=== PATIENT | female | born 1945 | race Caucasian/White ===

== ENCOUNTER 2017-11-01 19:14 | Emergency (ER) | payer MEDICARE, OTHER ==
[~2017-11-01 19:14] MED LIST: ALEN70TA39 PO; BACLPOW30 PO; CARV3.12 PO; CIPR500T2 PO; HYDR-2768 PO; POTA-267 PO; TEMA15CA PO; TRAM50 PO
[2017-11-01 19:27] VITALS: BP 144/63; PULSE 77; RESP 18; TEMP 98.5; O2SAT 97
[2017-11-01] MEDS ORDERED: POTA10SO12 PO (19:37)
[2017-11-01] MEDS ORDERED: HYDR25TA5 PO (19:37)
[2017-11-01] MEDS ORDERED: FOSA70TA3 (19:37)
[2017-11-01] MEDS ORDERED: GUAI600T11 PO (19:37)
[2017-11-01] MEDS ORDERED: CARV3.12 PO (19:37)
[2017-11-01] MEDS ORDERED: SERT-132 PO (19:37)
--- NOTE | 2017-11-01 19:41 | PD ---
HPI . Fall Chief Complaint: Fall Time Seen by Provider: 19:28 Travel History International Travel<30 days: No Contact w/Intl Traveler<30days: No Traveled to known affect area: No History of Present Illness HPI This is a patient with cerebral palsy who slid out of her wheelchair and landed on her right cheek. She comes in to us by [facility] with an injury to her right cheek, her right ear and her right lower thigh. She is unsure what she could have cut her ear on and is unsure as to how she injured her leg. She states that her pain is not very bad at all. The incident occurred just prior to presentation. There was no blow to the head or loss of consciousness. She denies neck pain. PFSH Past Medical History Arthritis: No Asthma: No Autoimmune Disease: No Blood Disorders: No Anxiety: No Depression: Yes (PT STATES THIS IS THE FIRST TIME SHE HAS BEEN DEPRESSED.) Cardiovascular Problems: No Cerebral Palsy: Yes High Cholesterol: No Chemotherapy: No Chest Pain: No Congestive Heart Failure: No COPD: No Cerebrovascular Accident: No Diabetes: No Diminished Hearing: No Endocrine: No GERD: No Glaucoma: No Genitourinary: No Headaches: No Hepatitis: No Hiatal Hernia: No Hypertension: Yes Immune Disorder: No Kidney Stones: No Neurologic: No Psychiatric: No Reproductive: No Respiratory: No Migraines: No Myocardial Infarction: No Radiation Therapy: No Renal Failure: No Seizures: No Sickle Cell Disease: No Sleep Apnea: No Thyroid Disease: No Ulcer: No PNEUMOCCOCAL Vaccine (Year): 2 Past Surgical History Abdominal Surgery: No Appendectomy: Yes Cardiac Surgery: No Cholecystectomy: No Ear Surgery: No Endocrine Surgery: No Eye Surgery: No Genitourinary Surgery: No Gynecologic Surgery: Yes (HYSTERECTOMY) Oral Surgery: No Thoracic Surgery: No Social History Alcohol Use: No Tobacco Use: No Substance Use: No Allergies-Medications (Allergen,Severity, Reaction): Coded Allergies: No Known Allergies (Verified , 11/10/11) Reported Meds & Prescriptions Reported Meds & Active Scripts Active Reported Potassium Chloride Liq (Potassium Chloride) 20 Meq/15 Ml Soln 20 Meq PO BID Mucus Relief ER (Guaifenesin) 600 Mg Tab 1,200 Mg PO BID PRN Carvedilol 3.125 Mg Tab 3.125 Mg PO BID Sertraline (Sertraline HCl) 50 Mg Tab 50 Mg PO DAILY Hydrochlorothiazide 25 Mg Tab 25 Mg PO BID Fosamax Plus D 70 mg-2,800 Iu (Alendronate Sodium/Vitamin D3) 70 Mg-2,800 Unit Tablet Review of Systems Except as stated in HPI: all other systems reviewed are Neg HENT: Positive: Other (right cheek pain), No: Headaches, Lightheadedness Musculoskeletal: Positive: Myalgias Skin: Positive Other (laceration) Physical Exam Narrative GENERAL: Awake and alert and in no acute distress. SKIN: Warm and dry. She has a laceration of the right ear. It is deep but well approximated. HEAD:. Normocephalic. Contusion to the right cheek. No periorbital tenderness. EYES: Pupils are equal. Extraocular movements are intact. NECK: Normal range of motion. Nontender. CARDIOVASCULAR: Regular rate and rhythm. RESPIRATORY: Nonlabored respirations. MUSCULOSKELETAL: Atraumatic. Tenderness to palpation just proximal to the right knee. No gross deformity. No bruising or swelling. Distally neurovascularly intact. NEUROLOGICAL: Nonfocal. PSYCHIATRIC: Appropriate mood and affect. Data Data Last Documented VS Vital Signs Date Time Temp Pulse Resp B/P (MAP) Pulse Ox O2 Delivery O2 Flow Rate FiO2 11/01/17 19:27 98.5 77 18 144/63 (90) 97 Orders Orders Tetanus/Diphtheria Tox Adult (Tetanus/Di (11/01/17 19:45) Ct Facial Bones W/O Iv Cont (11/01/17 19:32) Femur (Ap & Lat/2vws) (11/01/17 19:32) [employer] Request For Service (11/01/17 20:19) Acetamin-Hydrocod 325-5 Mg (Ventura 5-325 (11/01/17 20:30) Ibuprofen (Motrin) (11/01/17 20:45) MDM Medical Decision Making Medical Screen Exam Complete: Yes Emergency Medical Condition: Yes Differential Diagnosis Differential diagnosis of facial trauma includes but is not limited to soft tissue contusion, abrasions, laceration, nasal fracture, orbital fracture, zygomatic fracture Differential diagnosis of extremity trauma includes but is not limited to fracture, sprain or strain, dislocation, contusion Narrative Course This patient presents for evaluation of injuries sustained when she slid out of her wheelchair. She is wheelchair-bound because of cerebral palsy. Her main complaint was right lower thigh pain. She also had an injury to her right cheek and right ear. The x-ray of her right femur shows a subtle, nondisplaced fracture of the distal femur. She is a wheelchair-bound patient. Therefore, I am treating her fracture with a cotton roll, Wai wrap and knee immobilizer. She is complaining of very little pain. I have ordered Ventura for her pain. Last Impressions Maxillofacial CT 11/01/171931 Signed Impressions: Service Date/Time: Wednesday, November 01, 2017 20:21 - CONCLUSION: 1. Superficial edema in the right anterior face over the right axilla. 2. Asymmetry to the TMJs with the left TMJ appearing widened. This can be correlated if there are any symptoms related to this region. Tomasz Saldana MD Femur X-Ray 11/01/171931 Signed Impressions: Service Date/Time: Wednesday, November 01, 2017 19:45 - CONCLUSION: Distal right femoral fracture. Tomasz Saldana MD This patient lives in a facility. They should be able to take care of her femur fracture there. She will be discharged back to them with a prescription for Ventura for pain and a referral to orthopedics for routine follow-up. Procedures Procedure Narrative LACERATION LOCATION: Right ear LENGTH: 1 cm REPAIR: The area of the laceration was prepped with sterile saline. The wound was copiously irrigated and explored without evidence of foreign body, tendon injury or neurovascular injury. The wound was closed using Dermabond. Patient tolerated the procedure well. Splint was applied by the tech under my direct supervision. Good movement and capillary refill distal to the injury following splinting. Patient reports that the splint feels comfortable. Diagnosis Primary Impression: Closed fracture of right distal femur Qualified Codes: S72.401A - Unspecified fracture of lower end of right femur, initial encounter for closed fracture Additional Impressions: Laceration of right ear Qualified Codes: S01.311A - Laceration without foreign body of right ear, initial encounter Facial contusion Qualified Codes: S00.83XA - Contusion of other part of head, initial encounter Referrals: Baljit Padilla MD Patient Instructions: Facial Contusion (ED), General Instructions, Muscle Strain (DC), Skin Adhesive Care (DC) Med/Other Pt SpecificInfo: Prescription(s) given Scripts Hydrocodone-Acetaminophen (Ventura) 5 Mg-325 Mg Tab 1 TAB PO Q4H Y for PAIN, #15 TAB 0 Refills Prov: Nat Santillan MD 11/01/17 Disposition: 01 DISCHARGE HOME Condition: Stable Nat Santillan MD Nov 01, 2017 19:41
[2017-11-01] MEDS ORDERED: TETANUS/DIPHTHERIA TOXOID ADULT 0.5 ML VIAL IM ONE (19:45)
--- NOTE | 2017-11-01 20:11 | RADRPT ---
EXAM DATE/TIME: 11/01/2017 19:45 [facility] COMPARISON: No previous studies available for comparison. INDICATIONS : Evaluate right femur for trauma, fell MEDICAL HISTORY : Arthritis. SURGICAL HISTORY : None. ENCOUNTER: Initial ACUITY: 1 day PAIN SCORE: 0/10 LOCATION: Right Femur FINDINGS: There is fracturing of the distal aspect of the femur at the metaphyseal region. The knee and hip dariusz nts are aligned. There is a mild knee effusion. The bones are osteopenic. CONCLUSION: Distal right femoral fracture. Tomasz Saldana MD on November 01, 2017 at 20:07 Board Certified Radiologist. This report was verified electronically.
[2017-11-01] MEDS ORDERED: ACETAMINOPHEN/HYDROcodone 325 MG/5 MG TAB PO ONE (20:30)
--- NOTE | 2017-11-01 20:40 | RADRPT ---
EXAM DATE/TIME: 11/01/2017 20:21 [facility] COMPARISON: No previous studies available for comparison. INDICATIONS : Fall from wheelchair onto right side of face. RADIATION DOSE: 38.04 CTDIvol (mGy) MEDICAL HISTORY : Hypertension. cerebral palsy SURGICAL HISTORY : Appendectomy. ENCOUNTER: Initial ACUITY: 1 day PAIN SCORE: 7/10 LOCATION: Right face TECHNIQUE: Volumetric scanning of the facial bones was performed. Using automated exposure control and adjustme nt of the mA and/or kV according to patient size, radiation dose was kept as low as reasonably achiev able to obtain optimal diagnostic quality images. DICOM format image data is available electronicall y for review and comparison. FINDINGS: ORBITS: The orbital and infraorbital osseous structures are intact. The retroconal structures have a normal configuration. No radiopaque foreign bodies are seen. NASAL BONE: The nasal bone and maxillary spine are intact ZYGOMATIC ARCHES: Symmetric without evidence of fracture. SINUSES: The maxillary, ethmoid and frontal sinuses are intact. No air-fluid levels seen. NASAL CAVITY: The nasal septum is intact and midline. The lacrimal ducts are intact. SOFT TISSUES: There is induration in the right anterior subcutaneous tissues over the right maxilla.. INTRACRANIAL: No intracranial air seen. CRIBIFORM PLATE: Grossly intact. OTHER: On the images, there is asymmetry to the TMJ regions with the left TMJ appearing widened. The left ma ndibular condyle appears further from the temporal eminence on the left than it does on the right. Th is can be correlated with any signs of subluxation at the left TMJ. CONCLUSION: 1. Superficial edema in the right anterior face over the right axilla. 2. Asymmetry to the TMJs with the left TMJ appearing widened. This can be correlated if there are any symptoms related to this region. Tomasz Saldana MD on November 01, 2017 at 20:34 Board Certified Radiologist. This report was verified electronically.
[2017-11-01] MEDS ORDERED: IBUPROFEN 800 MG TAB PO ONE (20:45)
[2017-11-01] MEDS ORDERED: NORC5TAB PO (21:02)
== END 2017-11-02 00:10 | disposition home or self-care (01) ==
LOC: NEPE 19:14 → NEDAMB 11-02 00:10
DX: S72.401A Unspecified fracture of lower end of right femur, initial encounter for closed fracture (principal); S01.311A Laceration without foreign body of right ear, initial encounter; S00.83XA Contusion of other part of head, initial encounter; G80.9 Cerebral palsy, unspecified; I10 Essential (primary) hypertension; W05.0XXA Fall from non-moving wheelchair, initial encounter; Z79.899 Other long term (current) drug therapy; Z23 Encounter for immunization
CPT/HCPCS: 12011; 70486; 73552; 90471; 90714; 99285; L1830

== ENCOUNTER 2018-03-31 06:12 | Emergency (ER) | payer MEDICARE, OTHER ==
[~2018-03-31] VITALS: Ht 165.1 cm; Wt 91.0 kg
[~2018-03-31 06:12] MED LIST changes: -ALEN70TA39 PO; -BACLPOW30 PO; -CIPR500T2 PO; +FOSA70TA3; +GUAI600T11 PO; -HYDR-2768 PO; +HYDR25TA5 PO; +NORC5TAB PO; -POTA-267 PO; +POTA10SO12 PO; +SERT-132 PO; -TEMA15CA PO; -TRAM50 PO
[2018-03-31 06:23] VITALS: PULSE 65; RESP 12; TEMP 97.7
[2018-03-31 06:29] VITALS: BP 124/58; PULSE 64; RESP 12; TEMP 97.7; O2SAT 96
[2018-03-31] MEDS ORDERED: SODIUM CHLORIDE 0.9% FLUSH 10 ML FLUSH IV FLUSH PRN (06:30)
[2018-03-31 07:04] LABS: AUTOMATED NEUTROPHIL # 6.4 TH/MM3 (1.8-7.7); BASOPHIL % 0.3 % (0.0-2.0); EOSINOPHIL # 0.5 TH/MM3 (0-0.4); EOSINOPHIL % 5.9 % (0.0-4.0); LYMPH % 14.1 % (9.0-44.0); LYMPHOCYTE # 1.2 TH/MM3 (1.0-4.8); MEAN CORPUSCULAR HEMOGLOBIN 31.8 PG (27.0-34.0); MEAN CORPUSCULAR HGB CONC 34.2 % (32.0-36.0); MEAN PLATELET VOLUME 9.2 FL (7.0-11.0); MONO % 6.9 % (0.0-8.0); MONOCYTE # 0.6 TH/MM3 (0-0.9); NEUT % 72.8 % (16.0-70.0); PLATELET COUNT 263 TH/MM3 (150-450); RED BLOOD COUNT 4.09 MIL/MM3 (4.00-5.30); RED CELL DISTRIBUTION WIDTH 13.5 % (11.6-17.2); WHITE BLOOD COUNT 8.8 TH/MM3 (4.0-11.0)
[2018-03-31] MEDS ORDERED: DOCU100S PO (07:10)
[2018-03-31] MEDS ORDERED: LACT10SO G-TUBE (07:10)
[2018-03-31] MEDS ORDERED: BACL20TA PO (07:10)
[2018-03-31] MEDS ORDERED: D-20TAB3 PO (07:10)
[2018-03-31] MEDS ORDERED: BACL10TA PO (07:10)
[2018-03-31] MEDS ORDERED: MELA5 PO (07:10)
--- NOTE | 2018-03-31 07:24 | PD ---
HPI Chief Complaint: [employer] Con[employer] Problem Time Seen by Provider: 06:22 Travel History International Travel<30 days: No Contact w/Intl Traveler<30days: No Traveled to known affect area: No History of Present Illness HPI Patient is a 72 year old female with a history of cerebral palsy presents emergency department for dislodgment of gastric feeding tube. According to EMS detention staff went to give the patient her morning feeding and on assessing her noticed the G-tube was dislodged. I was called to bring her to the hospital for replacement of the G-tube. Patient has apparently fairly severe cerebral palsy and is unable to provide any of her history. EMS on their assessment and also noticed the patient's abdomen was distended and fairly firm and especially in the lower quadrants. No reported history of nausea vomiting or fevers. No history of cancer apparently. Remainder the history is extremely limited by the patient's baseline mental status PFSH Past Medical History Arthritis: No Asthma: No Autoimmune Disease: No Blood Disorders: No Anxiety: No Depression: Yes Cardiovascular Problems: No Cerebral Palsy: Yes High Cholesterol: No Chemotherapy: No Chest Pain: No Congestive Heart Failure: No COPD: No Cerebrovascular Accident: No Diabetes: No Diminished Hearing: No Endocrine: No GERD: No Glaucoma: No Genitourinary: No Headaches: No Hepatitis: No Hiatal Hernia: No Hypertension: Yes Immune Disorder: No Kidney Stones: No Neurologic: No Psychiatric: No Reproductive: No Respiratory: No Migraines: No Myocardial Infarction: No Radiation Therapy: No Renal Failure: No Seizures: No Sickle Cell Disease: No Sleep Apnea: No Thyroid Disease: No Ulcer: No PNEUMOCCOCAL Vaccine (Year): 2 Past Surgical History Abdominal Surgery: No Appendectomy: Yes Cardiac Surgery: No Cholecystectomy: No Ear Surgery: No Endocrine Surgery: No Eye Surgery: No Genitourinary Surgery: No Gynecologic Surgery: Yes (HYSTERECTOMY) Oral Surgery: No Thoracic Surgery: No Social History Alcohol Use: No Tobacco Use: No Substance Use: No Allergies-Medications (Allergen,Severity, Reaction): Coded Allergies: No Known Allergies (Verified Adverse Reaction, Unknown, 03/31/18) Reported Meds & Prescriptions Reported Meds & Active Scripts Active Reported Melatonin 5 Mg Tab 3 Mg PO HS Lactulose Liq (Lactulose) 10 Gm/15 Ml Soln 15 Ml G-TUBE BID Docusate Sodium Liq (Docusate Sodium) 50 Mg/5 Ml Liq 100 Mg PO DAILY D-2000 Maximum Strength (Cholecalciferol) 2,000 Unit Tab 1,000 Units PO DAILY Baclofen 20 Mg Tab 20 Mg PO DAILY Baclofen 10 Mg Tab 10 Mg PO BID Potassium Chloride Liq (Potassium Chloride) 20 Meq/15 Ml Soln 20 Meq PO BID Carvedilol 3.125 Mg Tab 3.125 Mg PO BID Sertraline (Sertraline HCl) 50 Mg Tab 50 Mg PO DAILY Hydrochlorothiazide 25 Mg Tab 25 Mg PO BID Fosamax Plus D 70 mg-2,800 Iu (Alendronate Sodium/Vitamin D3) 70 Mg-2,800 Unit Tablet Review of Systems ROS Limitations: Altered Mental Status Physical Exam Narrative GENERAL: Well-developed well-nourished, no obvious distress per SKIN: Focused skin assessment warm/dry. HEAD: Atraumatic. Normocephalic. EYES: Pupils equal and round. No scleral icterus. No injection or drainage. ENT: No nasal bleeding or discharge. Mucous membranes pink and moist. NECK: Trachea midline. No JVD. CARDIOVASCULAR: Regular rate and rhythm. No murmur appreciated. RESPIRATORY: No accessory muscle use. Clear to auscultation. Breath sounds equal bilaterally. GASTROINTESTINAL: Abdomen is fairly distended, there is some firmness to palpation is particularly in the lower quadrants, there is voluntary guarding without any involuntary guarding. No peritoneal signs. No percussive tenderness no rebound tenderness. There is a left-sided gastrostomy ostomy that does show some gastric contents rate at its orifice. Appears to be well- healed. No surrounding erythema. MUSCULOSKELETAL: No obvious deformities. No clubbing. No cyanosis. No edema. NEUROLOGICAL: Awake and alert. No obvious cranial nerve deficits. Motor grossly within normal limits. Normal speech. PSYCHIATRIC: Appropriate mood and affect; insight and judgment normal. Data Data Last Documented VS Vital Signs Date Time Temp Pulse Resp B/P (MAP) Pulse Ox O2 Delivery O2 Flow Rate FiO2 03/31/18 06:29 97.7 64 12 124/58 (80) 96 Room Air Orders Orders Complete Blood Count With Diff (03/31/18 06:22) Comprehensive Metabolic Panel (03/31/18 06:22) Lipase (03/31/18 06:22) Lactic Acid (03/31/18 06:22) Urinalysis - C+S If Indicated (03/31/18 06:22) Iv Access Insert/Monitor (03/31/18 06:22) Ecg Monitoring (03/31/18 06:22) Oximetry (03/31/18 06:22) Sodium Chloride 0.9% Flush (Ns Flush) (03/31/18 06:30) Ct Abd/Pel W Iv Contrast(Rout) (03/31/18 ) Labs Laboratory Tests Test 03/31/18 06:40 White Blood Count 8.8 TH/MM3 Red Blood Count 4.09 MIL/MM3 Hemoglobin 13.0 GM/DL Hematocrit 38.0 % Mean Corpuscular Volume 93.0 FL Mean Corpuscular Hemoglobin 31.8 PG Mean Corpuscular Hemoglobin Concent 34.2 % Red Cell Distribution Width 13.5 % Platelet Count 263 TH/MM3 Mean Platelet Volume 9.2 FL Neutrophils (%) (Auto) 72.8 % Lymphocytes (%) (Auto) 14.1 % Monocytes (%) (Auto) 6.9 % Eosinophils (%) (Auto) 5.9 % Basophils (%) (Auto) 0.3 % Neutrophils # (Auto) 6.4 TH/MM3 Lymphocytes # (Auto) 1.2 TH/MM3 Monocytes # (Auto) 0.6 TH/MM3 Eosinophils # (Auto) 0.5 TH/MM3 Basophils # (Auto) 0.0 TH/MM3 CBC Comment DIFF FINAL Differential Comment MDM Medical Decision Making Medical Screen Exam Complete: Yes Emergency Medical Condition: Yes Differential Diagnosis Dislodged gastrotomy feeding tube, abdominal mass, acute abdomen seems unlikely. Narrative Course Patient room to the emergency department, given the history of fairly low index suspicion but given the abdominal findings on exam my concern is for a mass that I cannot palpate the edges of, CAT scan has been ordered. I placed initially a 10 [place] June to hold gentle open for the G-tube. Patient was discussed with Dr. Olson at 07 100 shift change to follow-up CAT scan. Disposition appropriately. An 18fr g tube was placed with minimal ease. Minimal bleeding afterwards. Aspiration of gastric contents performed. Tolerated well. Not flused as will be confirmed on CT. Ovidio Johnson MD March 31, 2018 07:24
[2018-03-31 08:00] VITALS: BP 165/74; PULSE 72; RESP 17; O2SAT 97
[2018-03-31 09:25] LABS: BACTERIA, URINE MOD /hpf; BILIRUBIN, URINE NEG (NEG); BLOOD, URINE NEG (NEG); GLUCOSE,URINE NEG (NEG); KETONE, URINE NEG (NEG); MUCUS URINE FEW /lpf (OCC); NITRITE,URINE POS (NEG); PH, URINE 6.5 (5.0-8.5); SQUAMOUS EPITHELIAL CELL URINE 1 /hpf (0-5); URINE COLOR YELLOW (YELLW/STRAW); URINE LEUKOCYTE ESTERASE LARGE (NEG)
[2018-03-31 09:58] LABS: ALBUMIN 3.2 GM/DL (3.4-5.0); AST (GOT) 23 U/L (15-37); BICARBONATE 27.2 MEQ/L (21.0-32.0); BLOOD UREA NITROGEN 23 MG/DL (7-18); CALCIUM 8.9 MG/DL (8.5-10.1); CHLORIDE 103 MEQ/L (98-107); CREATININE 0.62 MG/DL (0.50-1.00); GLOMERULAR FILTRATION RATE 95 ML/MIN (>89); GLUCOSE,RANDOM 116 MG/DL (74-106); SODIUM (NA) 139 MEQ/L (136-145)
[2018-03-31 10:00] LABS: ALT (GPT) 46 U/L (10-53)
[2018-03-31 10:02] LABS: ALKALINE PHOSPHATASE 110 U/L (45-117); TOTAL BILIRUBIN ADULT 0.3 MG/DL (0.2-1.0); TOTAL PROTEIN 7.3 GM/DL (6.4-8.2)
[2018-03-31] MEDS ORDERED: IOHEXOL 350 MG/ML 10 ML VIAL (for RAD DIAG) IVCONTRAST ONE (10:36)
--- NOTE | 2018-03-31 10:45 | RADRPT ---
EXAM DATE/TIME: 03/31/2018 10:26 [facility] COMPARISON: No previous studies available for comparison. INDICATIONS : Abdomen pain and lower quadrant firmness. G-tube dislodged with drainage. IV CONTRAST: 93 cc Omnipaque 350 (iohexol) IV ORAL CONTRAST: No oral contrast ingested. RADIATION DOSE: 16.60 CTDIvol (mGy) MEDICAL HISTORY : Hypertension. Cerebral palsy SURGICAL HISTORY : Appendectomy. Hysterectomy.G-tube ENCOUNTER: Initial ACUITY: 1 day PAIN SCALE: 3/10 LOCATION: anterior TECHNIQUE: Volumetric scanning of the abdomen and pelvis was performed. Using automated exposure control and ad justment of the mA and/or kV according to patient size, radiation dose was kept as low as reasonably achievable to obtain optimal diagnostic quality images. DICOM format image data is available electro nically for review and comparison. FINDINGS: LOWER LUNGS: The visualized lower lungs are clear. LIVER: Homogeneous density without lesion. There is no dilation of the biliary tree. No calcified gallston es. SPLEEN: Normal size without lesion. PANCREAS: Within normal limits. KIDNEYS: Normal in size and shape. There is no mass, stone or hydronephrosis. Benign-appearing cortical cyst medially in the upper pole left kidney measures 3.7 cm in diameter ADRENAL GLANDS: Within normal limits. VASCULAR: There is no aortic aneurysm. BOWEL/MESENTERY: The stomach, small bowel, and colon demonstrate no acute abnormality. There is no free intraperitone al air or fluid. Gastrostomy tube appropriately positioned within the gastric lumen. Large amount of stool in the rectal vault. ABDOMINAL WALL: Within normal limits. RETROPERITONEUM: There is no lymphadenopathy. BLADDER: No wall thickening or mass. REPRODUCTIVE: Within normal limits. INGUINAL: There is no lymphadenopathy or hernia. MUSCULOSKELETAL: Mild dextroscoliosis of the lumbar spine. Chronic compression fractures through the superior and plat es of L2-L4. Otherwise intact. CONCLUSION: 1. No acute intraperitoneal or pelvic process to explain current clinical symptoms. 2. Gastrostomy tube is appropriately positioned in the gastric lumen. 3. Mild dextroscoliosis of the lumbar spine with chronic appearing compression fractures through the superior endplates of L2-L4 Vineet Romero MD on March 31, 2018 at 10:36 Board Certified Radiologist. This report was verified electronically.
--- NOTE | 2018-03-31 11:03 | PD ---
Physical Exam Narrative GENERAL: SKIN: Warm and dry. HEAD: Atraumatic. Normocephalic. EYES: Pupils equal and round. No scleral icterus. No injection or drainage. ENT: No nasal bleeding or discharge. Mucous membranes pink and moist. NECK: Trachea midline. No JVD. CARDIOVASCULAR: Regular rate and rhythm. RESPIRATORY: No accessory muscle use. Clear to auscultation. Breath sounds equal bilaterally. GASTROINTESTINAL: Abdomen soft, non-tender, nondistended. G-tube in place MUSCULOSKELETAL: Extremities without clubbing, cyanosis, or edema. No obvious deformities. NEUROLOGICAL: Arousable and follows directions, moving all extremities spontaneously. BUT SOMNOLENT PSYCHIATRIC: Appropriate mood and affect; insight and judgment normal. Data Data Last Documented VS Vital Signs Date Time Temp Pulse Resp B/P (MAP) Pulse Ox O2 Delivery O2 Flow Rate FiO2 03/31/18 08:00 72 17 165/74 (104) 97 03/31/18 06:29 97.7 Room Air Orders Orders Complete Blood Count With Diff (03/31/18 06:22) Comprehensive Metabolic Panel (03/31/18 06:22) Lipase (03/31/18 06:22) Lactic Acid (03/31/18 06:22) Urinalysis - C+S If Indicated (03/31/18 06:22) Iv Access Insert/Monitor (03/31/18 06:22) Ecg Monitoring (03/31/18 06:22) Oximetry (03/31/18 06:22) Sodium Chloride 0.9% Flush (Ns Flush) (03/31/18 06:30) Ct Abd/Pel W Iv Contrast(Rout) (03/31/18 ) Cath For Specimen (03/31/18 08:43) Urine Culture (03/31/18 09:07) Iohexol 350 Inj (Omnipaque 350 Inj) (03/31/18 10:36) Ed Discharge Order (03/31/18 11:00) Labs Laboratory Tests Test 03/31/18 06:40 03/31/18 09:07 03/31/18 09:31 White Blood Count 8.8 TH/MM3 Red Blood Count 4.09 MIL/MM3 Hemoglobin 13.0 GM/DL Hematocrit 38.0 % Mean Corpuscular Volume 93.0 FL Mean Corpuscular Hemoglobin 31.8 PG Mean Corpuscular Hemoglobin Concent 34.2 % Red Cell Distribution Width 13.5 % Platelet Count 263 TH/MM3 Mean Platelet Volume 9.2 FL Neutrophils (%) (Auto) 72.8 % Lymphocytes (%) (Auto) 14.1 % Monocytes (%) (Auto) 6.9 % Eosinophils (%) (Auto) 5.9 % Basophils (%) (Auto) 0.3 % Neutrophils # (Auto) 6.4 TH/MM3 Lymphocytes # (Auto) 1.2 TH/MM3 Monocytes # (Auto) 0.6 TH/MM3 Eosinophils # (Auto) 0.5 TH/MM3 Basophils # (Auto) 0.0 TH/MM3 CBC Comment DIFF FINAL Differential Comment Urine Color YELLOW Urine Turbidity CLEAR Urine pH 6.5 Urine Specific [place] 1.011 Urine Protein NEG mg/dL Urine Glucose (UA) NEG mg/dL Urine Ketones NEG mg/dL Urine Occult Blood NEG Urine Nitrite POS Urine Bilirubin NEG Urine Urobilinogen LESS THAN 2.0 MG/DL Urine Leukocyte Esterase LARGE Urine RBC 1 /hpf Urine WBC 36 /hpf Urine Squamous Epithelial Cells 1 /hpf Urine Bacteria MOD /hpf Urine Mucus FEW /lpf Microscopic Urinalysis Comment CULTURE INDICATED Blood Urea Nitrogen 23 MG/DL Creatinine 0.62 MG/DL Random Glucose 116 MG/DL Total Protein 7.3 GM/DL Albumin 3.2 GM/DL Calcium Level 8.9 MG/DL Alkaline Phosphatase 110 U/L Aspartate Amino Transf (AST/SGOT) 23 U/L Alanine Aminotransferase (ALT/SGPT) 46 U/L Total Bilirubin 0.3 MG/DL Sodium Level 139 MEQ/L Potassium Level 3.6 MEQ/L Chloride Level 103 MEQ/L Carbon Dioxide Level 27.2 MEQ/L Anion Gap 9 MEQ/L Estimat Glomerular Filtration Rate 95 ML/MIN Lactic Acid Level 1.2 mmol/L Lipase 95 U/L [facility] Medical Record Reviewed: Yes Supervised Visit with APARNA: No Narrative Course CBC shows no leukocytosis, no anemia, normal platelet count and no left shift UA is consistent with a UTI Elect lites are all within normal limits, normal kidney liver and pancreas functions. CT abdomen and pelvis shows no acute intraperitoneal or pelvic process. Gastrostomy tube and appropriately positioned in the gastric lumen. There are also some chronic appearing compression fractures through the superior endplates of L2 through L4. Diagnosis Primary Impression: G TUBE REPLACEMENT WITH CONFIRMATION Additional Impression: UTI Patient Instructions: General Instructions, How to Use and Care for Your PEG Tube (ED), Urinary Tract Infection in Women (ED) Scripts Nitrofurantoin Monohydrate Macrocrystals (Macrobid) 100 Mg Capsule 100 MG PO BID for Infection for 10 Days, #20 CAP 0 Refills Prov: Erick Olson MD 03/31/18 Disposition: 03 DISCHARGE TO SNF Condition: Stable Erick Olson MD March 31, 2018 11:03
[2018-03-31] MEDS ORDERED: MACR100C2 PO (11:29)
[2018-03-31 12:31] VITALS: BP 131/66; PULSE 73; RESP 22; O2SAT 95
== END 2018-03-31 14:25 ==
LOC: NEPC 06:12
DX: Z43.1 Encounter for attention to gastrostomy (principal); N39.0 Urinary tract infection, site not specified; I10 Essential (primary) hypertension; G80.9 Cerebral palsy, unspecified
CPT/HCPCS: 43760; 74177; 80053; 81001; 83605; 83690; 85025; 87077; 87086; 87186; 99284; P9612; Q9967